=== PATIENT | female | born 1960 | race Caucasian/White ===

== ENCOUNTER 2016-11-24 14:21 | Outpatient (CLI) | payer OTHER | END 2016-11-24 14:22 | DX: E03.9 Hypothyroidism, unspecified (principal) ==

== ENCOUNTER 2016-12-26 08:00 | Outpatient (CLI) | payer OTHER | END 2016-12-26 23:59 | DX: E03.9 Hypothyroidism, unspecified (principal) ==

== ENCOUNTER 2017-04-22 07:49 | Outpatient (CLI) | payer OTHER | END 2017-04-22 07:50 | disposition home or self-care (01) | LOC: DI 07:49 | PROVIDERS: ATTEND Family Medicine | DX: R06.09 Other forms of dyspnea (principal); R06.2 Wheezing; E78.5 Hyperlipidemia, unspecified | CPT/HCPCS: 93306; 94060; 94729; J7613 ==

== ENCOUNTER 2017-04-22 07:51 | Outpatient (CLI) | payer OTHER ==
[2017-04-22] MEDS ORDERED: ALBUTEROL NEB 2.5 MG/3 ML INH ONE (09:16)
== END 2017-04-22 07:52 | disposition home or self-care (01) ==
LOC: RT 07:51
PROVIDERS: ATTEND Family Medicine
DX: R06.09 Other forms of dyspnea (principal); R06.2 Wheezing
CPT/HCPCS: 94060; 94729; J7613

== ENCOUNTER 2017-07-26 08:08 | Outpatient (CLI) | payer OTHER ==
[2017-07-26 13:02] LABS: BASOPHILS # (AUTO) 0.1 10^3/uL (0.0-0.1); BASOPHILS % (AUTO) 0.6 %; EOSINOPHILS # (AUTO) 0.2 10^3/uL (0.0-0.7); EOSINOPHILS % (AUTO) 2.4 %; LYMPHOCYTES # (AUTO) 2.5 10^3/uL (1.5-3.5); MEAN CORPUSCULAR HGB CONC 33.3 g/dL (32.0-36.0); MEAN CORPUSCULAR VOLUME 84.1 fL (81.0-99.0); MEAN PLATELET VOLUME 9.3 fL (7.9-10.8); MONOCYTES # (AUTO) 0.6 10^3/uL (0.0-1.0); MONOCYTES % (AUTO) 5.9 %; NEUTROPHILS # (AUTO) 6.4 10^3/uL (1.5-6.6); NEUTROPHILS % (AUTO) 65.1 %; RED BLOOD COUNT 4.63 10^6/uL (4.20-5.40); RED CELL DISTRIBUTION WIDTH 14.7 % (12.0-15.0); UNCORRECTED WHITE BLOOD COUNT 9.8 x10^3/uL; WHITE BLOOD COUNT 9.8 x10^3/uL (4.8-10.8)
[2017-07-26 13:20] LABS: ALBUMIN/GLOBULIN RATIO 1.1 (1.0-2.2); BILIRUBIN,TOTAL 0.5 mg/dL (0.2-1.0); BUN - BLOOD UREA NITROGEN 17 mg/dL (6-20); CALCIUM 9.2 mg/dL (8.5-10.3); CARBON DIOXIDE - CO2 29 mmol/L (21-32); CHLORIDE 98 mmol/L (101-111); CHOL/HDL RATIO 4.5 (<4.4); CHOLESTEROL 250 mg/dL; CREATININE 0.8 mg/dL (0.4-1.0); GFR - MDRD 73 (>89); GLUCOSE 95 mg/dL (70-100); HDL CHOLESTEROL 55 mg/dL; LDL/HDL RATIO 3.2 (<4.4); POTASSIUM 3.9 mmol/L (3.5-5.0); SODIUM 134 mmol/L (135-145); TOTAL PROTEIN 7.5 g/dL (6.7-8.2); TRIGLYCERIDES 103 mg/dL; VLDL CHOLESTEROL 21 mg/dL
== END 2017-07-26 08:09 | disposition home or self-care (01) ==
LOC: LAB.WCP 08:08
PROVIDERS: ATTEND Family Medicine
DX: I10 Essential (primary) hypertension (principal); E78.5 Hyperlipidemia, unspecified; E03.9 Hypothyroidism, unspecified
CPT/HCPCS: 36415; 80050; 80061

== ENCOUNTER 2017-09-19 09:27 | Outpatient (CLI) | payer OTHER | END 2017-09-19 09:28 | disposition critical access hospital (66) | LOC: EMS 09:27 | PROVIDERS: ATTEND Surgery | DX: M54.9 Dorsalgia, unspecified (principal); W19.XXXA Unspecified fall, initial encounter; Y93.89 Activity, other specified; Y92.69 Other specified industrial and construction area as the place of occurrence of the external cause | CPT/HCPCS: A0425; A0429 ==

== ENCOUNTER 2017-09-19 09:49 | Emergency (ER) | payer OTHER ==
[2017-09-19] MEDS ORDERED: LIDOCAINE PATCH 5% TOP STA (10:07)
[2017-09-19] MEDS ORDERED: KETOROLAC 60 MG/2 ML VIAL IM STA (10:07)
--- NOTE | 2017-09-19 10:25 | ED Physician Documentation ---
History of Present Illness - Stated complaint Stated Complaint: FALL - Chief complaint Chief Complaint: Back Pain - Additonal information Additional information: hx from pt 57 f fell out of chair onto her bottom pain to low back no head neck chest abd injury no numbness weakness or incont no blood thinners Review of Systems Cardiac: denies: Chest pain / pressure Respiratory: denies: Dyspnea GI: denies: Abdominal Pain : denies: Incontinent, Now EGA Musculoskeletal: reports: Back pain Neurologic: denies: Focal weakness, Numbness Endocrine: denies: Easy bruising / bleeding PD PAST MEDICAL HISTORY - Present Medications Home Medications: Ambulatory Orders Medication Instructions Recorded Confirmed Esomeprazole Magnesium [Nexium] 40 mg PO BID 11/05/14 11/06/14 Fluoxetine HCl [Prozac] 40 mg PO BID 11/05/14 11/06/14 Furosemide 20 mg PO DAILY 11/05/14 11/06/14 Ibuprofen 800 mg PO TID 11/05/14 11/06/14 Isosorbide Dinitrate [Isochron] 60 mg PO DAILY 11/05/14 11/06/14 Levothyroxine [Synthroid] 25 mcg PO QDAC 11/05/14 11/06/14 Losartan [Cozaar] 25 mg PO ONCE 11/05/14 11/06/14 Propranolol [Inderal] 20 mg PO TID 11/05/14 11/06/14 Cyclobenzaprine [Flexeril] 10 mg PO TID PRN #20 tablet 09/19/17 Ibuprofen [Motrin] 400 mg PO Q6H PRN #30 tablet 09/19/17 Lidocaine Patch 5% [Lidoderm Patch] 1 each TOP DAILY PRN #10 patch 09/19/17 - Allergies Allergies/Adverse Reactions: Allergies Allergy/AdvReac Type Severity Reaction Status Date / Time erythromycin base Allergy Hives Verified 11/05/14 13:16 PD ED PE NORMAL - Vitals Vital signs reviewed: Yes - General General: Alert and oriented X 3 - HEENT HEENT: Atraumatic, PERRL - Neck Neck: Supple, no meningeal sign - Cardiac Cardiac: RRR - Respiratory Respiratory: No respiratory distress, Clear bilaterally - Abdomen Abdomen: Soft, Non tender - Back Back: Other (TTP acros posteior pelvis and low L spine - no bruising or step off , hip able to range s pain) - Derm Derm: Normal color - Extremities Extremities: No deformity, Normal ROM s pain - Neuro Neuro: No motor deficit, No sensory deficit, Other (hip flex knee ext foot dorsi plantar great toe 5/5, no clonus, neg SLR, denies saddle anesthesia) Results - Vitals Vitals: Vital Signs - 24 hr 09/19/17 09/19/17 09/19/17 09:53 11:16 12:42 Temperature 35.9 C L 36.5 C 36.5 C Heart Rate 59 L 67 62 Respiratory 22 18 18 Rate Blood Pressure 137/72 H 119/69 121/57 L O2 Saturation 100 96 94 Oxygen O2 Source Room air - Rads (name of study) pelvis and L spine Radiology: See rad report (no acute fx) Departure - Departure Disposition: ED Transfer to [facility] Clinical Impression: Back injury Qualifiers: Encounter type: initial encounter Qualified Code(s): S39.92XA - Unspecified injury of lower back, initial encounter Condition: Good Instructions: ED Low Back Pain Injury Prescriptions: Cyclobenzaprine [Flexeril] 10 mg PO TID PRN #20 tablet PRN Reason: Spasms Ibuprofen [Motrin] 400 mg PO Q6H PRN #30 tablet PRN Reason: Pain Lidocaine Patch 5% [Lidoderm Patch] 1 each TOP DAILY PRN #10 patch PRN Reason: Pain Comments: The xrays are fine - no fractures just some degenerative changes Recommend lidocaine patches, a muscle relaxant and motrin. Ice and or heat as needed Follow up with your PMD Return if worse Forms: Activity restrictions
--- NOTE | 2017-09-19 12:24 | XRAY Preliminary Report ---
Exam: XR PELVIS 1 VIEW IMPRESSION: No acute plain radiographic abnormality in the pelvis. [facility] SITE ID: [id number]
--- NOTE | 2017-09-19 12:27 | XRAY Report ---
EXAM: PELVIS RADIOGRAPHY EXAM DATE: 09/19/2017 12:05 PM. CLINICAL HISTORY: Fall low back and posterior pelvis pain. COMPARISON: None available. TECHNIQUE: 1 view. FINDINGS: Bones: Normal. No fracture or bone lesion. Joints: Normal joint alignment. Mild sclerosis along the lower aspect of the left sacroiliac joint. T here is facet hypertrophy in the lower lumbar spine. Soft Tissues: There are what appear to be hernia mesh repair markers. No soft tissue swelling. IMPRESSION: No acute plain radiographic abnormality in the pelvis. [facility] Referring Provider Line: [phone] SITE ID: [id number]
--- NOTE | 2017-09-19 12:27 | XRAY Preliminary Report ---
Exam: XR LUMBAR SPINE 2 VIEW IMPRESSION: 1. No acute plain radiographic abnormality in the lumbar spine. 2. Grade 2 anterolisthesis of L5 on S1. 3. Multilevel degenerative spondylosis. [facility] SITE ID: [id number]
--- NOTE | 2017-09-19 12:29 | XRAY Report ---
EXAM: LUMBOSACRAL SPINE RADIOGRAPHY EXAM DATE: 09/19/2017 12:05 PM. CLINICAL HISTORY: Fall low back and posterior pelvis pain. COMPARISONS: None available. TECHNIQUE: 2 views. FINDINGS: Alignment: There is approximately 1.7 cm anterolisthesis of L5 on S1. Bones: Five [id number] lumbar vertebral bodies are present. No fractures or bone lesions. Disks: There is at least mild intervertebral disk space narrowing at L1-L2, L3-L4, L4-L5, and L5-S1. Facets: There is facet hypertrophy at L4-L5 and L5-S1. Sacroiliac Joints: Mild asymmetric sclerosis of the lower margin of the left sacroiliac joint. Soft Tissues: Normal. The visualized bowel gas pattern is normal. IMPRESSION: 1. No acute plain radiographic abnormality in the lumbar spine. 2. Grade 2 anterolisthesis of L5 on S1. 3. Multilevel degenerative spondylosis. [facility] Referring Provider Line: [phone] SITE ID: [id number]
[2017-09-19 13:07] VITALS: BP 116/58
== END 2017-09-19 13:19 | disposition home or self-care (01) ==
LOC: EDUNIT# → ED 09:49
DX: S39.92XA Unspecified injury of lower back, initial encounter (principal); W07.XXXA Fall from chair, initial encounter
CPT/HCPCS: 1040M; 72100; 72170; 96372; 99283; 99284; A9270

== ENCOUNTER 2017-11-23 20:17 | Outpatient (CLI) | payer OTHER ==
[2017-11-23 12:30] LABS: BASOPHILS # (AUTO) 0.1 10^3/uL (0.0-0.1); BASOPHILS % (AUTO) 0.7 %; EOSINOPHILS # (AUTO) 0.3 10^3/uL (0.0-0.7); EOSINOPHILS % (AUTO) 2.9 %; HGB - HEMOGLOBIN 13.5 g/dL (12.0-16.0); LYMPHOCYTES # (AUTO) 2.3 10^3/uL (1.5-3.5); LYMPHOCYTES % (AUTO) 20.9 %; MEAN CORPUSCULAR HGB CONC 33.1 g/dL (32.0-36.0); MEAN CORPUSCULAR VOLUME 84.6 fL (81.0-99.0); MEAN PLATELET VOLUME 9.8 fL (7.9-10.8); MONOCYTES # (AUTO) 0.5 10^3/uL (0.0-1.0); MONOCYTES % (AUTO) 4.9 %; NEUTROPHILS # (AUTO) 7.8 10^3/uL (1.5-6.6); NEUTROPHILS % (AUTO) 70.6 %; PLT - PLATELET COUNT 261 10^3/uL (130-450); RED BLOOD COUNT 4.81 10^6/uL (4.20-5.40); RED CELL DISTRIBUTION WIDTH 14.9 % (12.0-15.0)
[2017-11-23 14:03] LABS: THYROID STIMULATING HORMONE 5.78 uIU/mL (0.34-5.60)
[2017-11-23 14:05] LABS: FREE T4 (FREE THYROXINE) 0.99 ng/dL (0.58-1.64)
[2017-11-23 14:11] LABS: ALBUMIN/GLOBULIN RATIO 1.1 (1.0-2.2); ALKALINE PHOSPHATASE 117 IU/L (42-121); ALT ALANINE AMINOTRANSFERASE 30 IU/L (10-60); AST ASPARTATE AMINOTRANSFERASE 25 IU/L (10-42); BILIRUBIN,TOTAL 0.8 mg/dL (0.2-1.0); BUN - BLOOD UREA NITROGEN 15 mg/dL (6-20); CARBON DIOXIDE - CO2 26 mmol/L (21-32); CHLORIDE 98 mmol/L (101-111); CHOL/HDL RATIO 3.9 (<4.4); CHOLESTEROL 210 mg/dL; CREATININE 0.7 mg/dL (0.4-1.0); GFR - MDRD 86 (>89); GLUCOSE 107 mg/dL (70-100); HDL CHOLESTEROL 54 mg/dL; LDL CHOLESTEROL,CALCULATED 129 mg/dL; LDL/HDL RATIO 2.4 (<4.4); SODIUM 135 mmol/L (135-145); TOTAL PROTEIN 7.8 g/dL (6.7-8.2); VLDL CHOLESTEROL 27 mg/dL
== END 2017-11-23 20:18 | disposition home or self-care (01) ==
LOC: LAB.WCP 20:17
PROVIDERS: ATTEND Family Medicine
DX: I10 Essential (primary) hypertension (principal); E78.5 Hyperlipidemia, unspecified; E03.9 Hypothyroidism, unspecified
CPT/HCPCS: 36415; 80053; 80061; 83721; 84439; 84443; 84481; 85025

== ENCOUNTER 2017-12-27 08:00 | Outpatient (CLI) | payer OTHER ==
[2017-12-27 19:24] LABS: THYROID STIMULATING HORMONE 0.29 uIU/mL (0.34-5.60)
[2017-12-27 19:25] LABS: FREE T4 (FREE THYROXINE) 1.29 ng/dL (0.58-1.64)
== END 2017-12-27 08:01 | disposition home or self-care (01) ==
LOC: LAB.WCP 08:00
PROVIDERS: ATTEND Family Medicine
DX: E03.9 Hypothyroidism, unspecified (principal)
CPT/HCPCS: 36415; 84439; 84443; 84481

== ENCOUNTER 2018-03-27 14:47 | Outpatient (CLI) | payer OTHER ==
[2018-03-27 19:24] LABS: THYROID STIMULATING HORMONE 0.25 uIU/mL (0.34-5.60)
[2018-03-27 19:26] LABS: FREE T4 (FREE THYROXINE) 1.14 ng/dL (0.58-1.64)
== END 2018-03-27 14:48 | disposition home or self-care (01) ==
LOC: LAB.WCP 14:47
PROVIDERS: ATTEND Family Medicine
DX: E03.9 Hypothyroidism, unspecified (principal)
CPT/HCPCS: 36415; 84439; 84443; 84481

== ENCOUNTER 2018-05-08 14:50 | Outpatient (CLI) | payer OTHER ==
[2018-05-08 19:36] LABS: THYROID STIMULATING HORMONE 2.11 uIU/mL (0.34-5.60)
[2018-05-08 19:38] LABS: FREE T4 (FREE THYROXINE) 1.12 ng/dL (0.58-1.64)
== END 2018-05-08 14:51 | disposition home or self-care (01) ==
LOC: LAB.WCP 14:50
PROVIDERS: ATTEND Family Medicine
DX: E03.9 Hypothyroidism, unspecified (principal)
CPT/HCPCS: 36415; 84439; 84443; 84481

== ENCOUNTER 2018-10-16 10:06 | Outpatient (CLI) | payer OTHER ==
[2018-10-16] MEDS ORDERED: BARIUM SULFATE 148 GM POWDER PO ONE (12:21)
--- NOTE | 2018-10-16 19:13 | XRAY Report ---
Reason: DYSPHAGIA Procedure Date: 10/16/2018 Accession Number: [id number] / [id number] Procedure: FL - Modified Barium Swallow W/SP CPT Code: FULL RESULT: EXAM: Modified Barium Swallow W/SP DATE: 10/16/2018 11:55 AM CLINICAL HISTORY: DYSPHAGIA TECHNIQUE: Routine COMPARISON: 12/03/2014 esophagram FINDINGS: The patient is given a variety of thin and thick liquids and solids to swallow by mouth. The swallowing mechanism proceeds normally. There is no evidence of aspiration, cricopharyngeus dysfunction, nasopharyngeal reflux, or other abnormality. Incidental note is made of degenerative change in the cervical spine. IMPRESSION: No significant abnormality modified barium swallow with speech pathology. See formal speech pathology report for detailed information.
== END 2018-10-16 10:07 | disposition home or self-care (01) ==
LOC: DI 10:06
PROVIDERS: ATTEND Family Medicine
DX: R13.10 Dysphagia, unspecified (principal)
CPT/HCPCS: 74230

== ENCOUNTER 2018-11-06 10:41 | Outpatient (CLI) | payer OTHER | END 2018-11-06 10:42 | disposition home or self-care (01) | LOC: SC 10:41 | PROVIDERS: ATTEND Internal Medicine Pulmonary Disease | DX: G47.33 Obstructive sleep apnea (adult) (pediatric) (principal); E66.01 Morbid (severe) obesity due to excess calories; Z68.42 Body mass index [BMI] 45.0-49.9, adult | CPT/HCPCS: 99203; 99212 ==

== ENCOUNTER 2018-12-07 20:55 | Outpatient (CLI) | payer OTHER | END 2018-12-07 20:56 | disposition home or self-care (01) | LOC: SC 20:55 | PROVIDERS: ATTEND Internal Medicine Pulmonary Disease | DX: G47.33 Obstructive sleep apnea (adult) (pediatric) (principal); G47.61 Periodic limb movement disorder | CPT/HCPCS: 95810 ==

== ENCOUNTER 2018-12-19 10:12 | Outpatient (CLI) | payer OTHER | END 2018-12-19 10:13 | disposition home or self-care (01) | LOC: SC 10:12 | PROVIDERS: ATTEND Nurse Practitioner Family | DX: G47.33 Obstructive sleep apnea (adult) (pediatric) (principal); G47.61 Periodic limb movement disorder | CPT/HCPCS: 99212; 99214 ==

== ENCOUNTER 2019-03-12 08:04 | Outpatient (CLI) | payer OTHER ==
[2019-03-12 14:41] LABS: BASOPHILS % (AUTO) 0.4 %; EOSINOPHILS # (AUTO) 0.3 10^3/uL (0.0-0.7); EOSINOPHILS % (AUTO) 3.5 %; HGB - HEMOGLOBIN 12.8 g/dL (12.0-16.0); LYMPHOCYTES # (AUTO) 1.8 10^3/uL (1.5-3.5); MEAN CORPUSCULAR HEMOGLOBIN 27.8 pg (27.0-31.0); MEAN CORPUSCULAR HGB CONC 32.9 g/dL (32.0-36.0); MEAN CORPUSCULAR VOLUME 84.5 fL (81.0-99.0); MEAN PLATELET VOLUME 8.9 fL (7.9-10.8); MONOCYTES # (AUTO) 0.5 10^3/uL (0.0-1.0); MONOCYTES % (AUTO) 6.2 %; NEUTROPHILS % (AUTO) 65.9 %; PLT - PLATELET COUNT 264 10^3/uL (130-450); RED BLOOD COUNT 4.62 10^6/uL (4.20-5.40); RED CELL DISTRIBUTION WIDTH 15.3 % (12.0-15.0); WHITE BLOOD COUNT 7.6 x10^3/uL (4.8-10.8)
[2019-03-12 14:50] LABS: ALBUMIN 3.7 g/dL (3.2-5.5); ALBUMIN/GLOBULIN RATIO 0.9 (1.0-2.2); ALKALINE PHOSPHATASE 113 IU/L (42-121); ALT ALANINE AMINOTRANSFERASE 20 IU/L (10-60); AST ASPARTATE AMINOTRANSFERASE 25 IU/L (10-42); BILIRUBIN,TOTAL 0.3 mg/dL (0.2-1.0); BUN - BLOOD UREA NITROGEN 11 mg/dL (6-20); CALCIUM 9.4 mg/dL (8.5-10.3); CARBON DIOXIDE - CO2 26 mmol/L (21-32); CHLORIDE 102 mmol/L (101-111); CHOL/HDL RATIO 3.7 (<4.4); CHOLESTEROL 222 mg/dL; CREATININE 0.7 mg/dL (0.4-1.0); GFR - MDRD 85 (>89); GLUCOSE 105 mg/dL (70-100); HDL CHOLESTEROL 60 mg/dL; LDL CHOLESTEROL,CALCULATED 140 mg/dL; LDL/HDL RATIO 2.3 (<4.4); SODIUM 139 mmol/L (135-145); TOTAL PROTEIN 7.6 g/dL (6.7-8.2); VLDL CHOLESTEROL 22 mg/dL
[2019-03-12 15:00] LABS: HB2 TOTAL 13.8 g/dL; HEMOGLOBIN A1C 0.49 g/dL; HEMOGLOBIN A1C % 5.4 % (4.6-6.2)
== END 2019-03-12 08:05 | disposition home or self-care (01) ==
LOC: LAB.WCP 08:04
PROVIDERS: ATTEND Family Medicine
DX: I10 Essential (primary) hypertension (principal); E03.9 Hypothyroidism, unspecified
CPT/HCPCS: 36415; 80053; 80061; 83036; 83721; 84443; 85025

== ENCOUNTER 2019-12-05 14:49 | Outpatient (CLI) | payer OTHER | END 2019-12-05 14:50 | disposition home or self-care (01) | LOC: DI.N 14:49 | DX: Z53.9 Procedure and treatment not carried out, unspecified reason (principal) ==

== ENCOUNTER 2020-01-23 08:00 | Outpatient (CLI) | payer OTHER | END 2020-01-23 23:59 | disposition home or self-care (01) | LOC: LAB.R 08:00 | PROVIDERS: ATTEND Physician Assistant Medical | DX: R10.32 Left lower quadrant pain (principal) | CPT/HCPCS: 87086 ==

== ENCOUNTER 2020-02-06 08:00 | Outpatient (CLI) | payer OTHER ==
[2020-02-06 13:25] LABS: BASOPHILS # (AUTO) 0.1 10^3/uL (0.0-0.1); BASOPHILS % (AUTO) 0.5 %; EOSINOPHILS # (AUTO) 0.3 10^3/uL (0.0-0.7); EOSINOPHILS % (AUTO) 3.1 %; HGB - HEMOGLOBIN 13.3 g/dL (12.0-16.0); LYMPHOCYTES # (AUTO) 2.8 10^3/uL (1.5-3.5); LYMPHOCYTES % (AUTO) 28.5 %; MEAN CORPUSCULAR HEMOGLOBIN 28.8 pg (27.0-31.0); MEAN CORPUSCULAR HGB CONC 31.7 g/dL (32.0-36.0); MEAN CORPUSCULAR VOLUME 90.9 fL (81.0-99.0); MEAN PLATELET VOLUME 11.2 fL (7.9-10.8); MONOCYTES # (AUTO) 0.5 10^3/uL (0.0-1.0); MONOCYTES % (AUTO) 5.1 %; NEUTROPHILS % (AUTO) 62.4 %; PLT - PLATELET COUNT 288 10^3/uL (130-450); RED BLOOD COUNT 4.62 10^6/uL (4.20-5.40); RED CELL DISTRIBUTION WIDTH 13.8 % (12.0-15.0); WHITE BLOOD COUNT 9.7 x10^3/uL (4.8-10.8)
[2020-02-06 14:19] LABS: ALBUMIN 4.1 g/dL (3.2-5.5); ALBUMIN/GLOBULIN RATIO 1.1 (1.0-2.2); ALKALINE PHOSPHATASE 108 IU/L (42-121); ALT ALANINE AMINOTRANSFERASE 24 IU/L (10-60); AST ASPARTATE AMINOTRANSFERASE 33 IU/L (10-42); BILIRUBIN,TOTAL 0.5 mg/dL (0.2-1.0); BUN - BLOOD UREA NITROGEN 17 mg/dL (6-20); CALCIUM 8.9 mg/dL (8.5-10.3); CARBON DIOXIDE - CO2 26 mmol/L (21-32); CHLORIDE 97 mmol/L (101-111); CHOL/HDL RATIO 4.5 (<4.4); CHOLESTEROL 245 mg/dL; CREATININE 0.8 mg/dL (0.4-1.0); GLUCOSE 89 mg/dL (70-100); HDL CHOLESTEROL 54 mg/dL; LDL CHOLESTEROL,CALCULATED 160 mg/dL; SODIUM 134 mmol/L (135-145); TOTAL PROTEIN 7.7 g/dL (6.7-8.2); VLDL CHOLESTEROL 31 mg/dL
[2020-02-06 14:22] LABS: T4 (THYROXINE) 8.73 ug/dL (6.09-12.23)
[2020-02-06 14:29] LABS: FREE T4 (FREE THYROXINE) 0.89 ng/dL (0.58-1.64)
== END 2020-02-06 23:59 | disposition home or self-care (01) ==
LOC: LAB.WCP 08:00
PROVIDERS: ATTEND Physician Assistant Medical
DX: E78.5 Hyperlipidemia, unspecified (principal); E03.9 Hypothyroidism, unspecified; R10.32 Left lower quadrant pain; K21.9 Gastro-esophageal reflux disease without esophagitis
CPT/HCPCS: 36415; 80053; 80061; 83721; 84436; 84439; 84443; 85025; 87086

== ENCOUNTER 2020-11-09 15:28 | Outpatient (CLI) | payer OTHER ==
--- NOTE | 2020-11-09 16:37 | DEXA Report ---
PROCEDURE: Dexa Spine and/or Hip INDICATIONS: POST MENOPAUSAL TECHNIQUE: Dual energy x-ray absorptiometry (DXA) was performed on a [employer] System. Regions measur ed are the AP Spine, femoral neck, and if needed forearm. COMPARISON: None. FINDINGS: Left Hip: Bone Mineral Density 0.855 g/cm/cm,T score -1.2, minimal osteopenia Left Femoral Neck: Bone Mineral Density 0.719 g/cm/cm, T score -2.3, severe osteopenia Left forearm: Bone Mineral Density 0.510 g/cm/cm, T score -2.7, mild osteoporosis (T score greater or equal to -1.0: NORMAL) (T score from -1.1 to -2.4: OSTEOPENIA) (T score less than or equal to -2.5 to: OSTEOPOROSIS) Impression: Osteoporosis within the left forearm as above. Patients with diagnosis of osteoporosis or osteopenia should have regular bone mineral density assess ment. For those eligible for Medicare, routine testing is allowed once every 2 years. Testing frequ ency can be increased for patients who have rapidly progressing disease or for those who are receivin g medical therapy to restore bone mass. Reviewed by: Ksenia Guerin MD on 11/09/2020 4:36 PM PST Approved by: Ksenia Guerin MD on 11/09/2020 4:36 PM PST Station ID: [id number]
== END 2020-11-09 15:29 | disposition home or self-care (01) ==
LOC: DI 15:28
PROVIDERS: ATTEND Physician Assistant Medical
DX: M81.0 Age-related osteoporosis without current pathological fracture (principal); Z78.0 Asymptomatic menopausal state

== ENCOUNTER 2021-01-30 09:32 | Outpatient (CLI) | payer OTHER ==
[2021-01-30 13:37] LABS: BASOPHILS # (AUTO) 0.1 10^3/uL (0.0-0.1); BASOPHILS % (AUTO) 0.7 %; EOSINOPHILS # (AUTO) 0.4 10^3/uL (0.0-0.7); HCT - HEMATOCRIT 42.8 % (37.0-47.0); HGB - HEMOGLOBIN 13.3 g/dL (12.0-16.0); LYMPHOCYTES # (AUTO) 2.6 10^3/uL (1.5-3.5); MEAN CORPUSCULAR HEMOGLOBIN 28.4 pg (27.0-31.0); MEAN CORPUSCULAR HGB CONC 31.1 g/dL (32.0-36.0); MEAN CORPUSCULAR VOLUME 91.5 fL (81.0-99.0); MEAN PLATELET VOLUME 10.5 fL (7.9-10.8); MONOCYTES # (AUTO) 0.5 10^3/uL (0.0-1.0); MONOCYTES % (AUTO) 5.3 %; NEUTROPHILS # (AUTO) 6.7 10^3/uL (1.5-6.6); NEUTROPHILS % (AUTO) 64.7 %; PLT - PLATELET COUNT 326 10^3/uL (130-450); RED BLOOD COUNT 4.68 10^6/uL (4.20-5.40); RED CELL DISTRIBUTION WIDTH 15.1 % (12.0-15.0); WHITE BLOOD COUNT 10.3 x10^3/uL (4.8-10.8)
[2021-01-30 13:56] LABS: ALBUMIN/GLOBULIN RATIO 1.1 (1.0-2.2); ALKALINE PHOSPHATASE 116 IU/L (42-121); ALT ALANINE AMINOTRANSFERASE 25 IU/L (10-60); AST ASPARTATE AMINOTRANSFERASE 26 IU/L (10-42); BILIRUBIN,TOTAL 0.6 mg/dL (0.2-1.0); BUN - BLOOD UREA NITROGEN 19 mg/dL (6-20); CALCIUM 9.2 mg/dL (8.5-10.3); CARBON DIOXIDE - CO2 29 mmol/L (21-32); CHLORIDE 99 mmol/L (101-111); CHOL/HDL RATIO 3.9 (<4.4); CHOLESTEROL 237 mg/dL; CREATININE 0.8 mg/dL (0.4-1.0); GFR - MDRD 73 (>89); GLUCOSE 100 mg/dL (70-100); HDL CHOLESTEROL 61 mg/dL; LDL CHOLESTEROL,CALCULATED 154 mg/dL; LDL/HDL RATIO 2.5 (<4.4); POTASSIUM 3.9 mmol/L (3.5-5.0); SODIUM 136 mmol/L (135-145); TOTAL PROTEIN 7.5 g/dL (6.7-8.2); TRIGLYCERIDES 110 mg/dL; VLDL CHOLESTEROL 22 mg/dL
[2021-01-30 14:07] LABS: THYROID STIMULATING HORMONE 6.63 uIU/mL (0.34-5.60)
[2021-01-30 14:43] LABS: FREE T4 (FREE THYROXINE) 0.71 ng/dL (0.58-1.64)
== END 2021-01-30 09:33 | disposition home or self-care (01) ==
LOC: LAB.N 09:32
PROVIDERS: ATTEND Physician Assistant Medical
DX: E78.5 Hyperlipidemia, unspecified (principal); E03.9 Hypothyroidism, unspecified; N39.41 Urge incontinence
CPT/HCPCS: 36415; 80053; 80061; 83721; 84439; 84443; 85025

== ENCOUNTER 2021-03-24 09:16 | Outpatient (CLI) | payer OTHER ==
--- NOTE | 2021-03-26 11:14 | Mammography Report ---
BILATERAL DIGITAL DIAGNOSTIC MAMMOGRAM 3D/2D: 03/24/2021 CLINICAL: Palpable Left breast lump. Comparison is made to exams dated: 07/27/2016 mammogram - [facility], 07/31/2013 ammogram, and 06/02/2011 mammogram - [facility] [[email or web address] There are scattered fibroglandular elements in both breasts. No significant masses, calcifications, or other findings are seen in either breast. IMPRESSION: INCOMPLETE: NEEDS ADDITIONAL IMAGING EVALUATION There is no abnormality seen in the left breast to correspond with the area of clinical concern and p alpable abnormality indicated by triangular marker at 11 o'clock in the middle depth. An ultrasound is recommended for further evaluation and is scheduled to immediately follow this exami nation. This exam was interpreted at Station ID: [id number]. NOTE: For mammograms, a report in lay terms will be sent to the patient. Approximately 15% of breast malignancies will not be visualized mammographically. In the management of a palpable breast mass, a negative mammogram must not discourage biopsy of a clinically suspicious lesion. Electronically Signed By: Obey Wilson M.D. aty/:03/25/2021 18:58:56 ACR BI-RADS Category 0: Incomplete 3340F PARENCHYMAL PATTERN: (A) - The breast(s) demonstrate(s) scattered fibroglandular densities. BI-RADS CATEGORY: (0) - 0 Ultrasound [id number] Immediate follow-up LATERALITY: (L)
--- NOTE | 2021-03-26 11:14 | Ultrasound Report ---
LIMITED ULTRASOUND OF LEFT BREAST: 03/24/2021 CLINICAL: Palpable left breast lump. Comparison is made to exams dated: 03/24/2021 mammogram, 07/27/2016 mammogram - [facility], 07/31/2013 mammogram, and 06/02/2011 mammogram - [facility]. Real-time ultrasound of the left breast upper inner quadrant was performed. Parsons scale images of th e real-time examination were reviewed. No significant abnormalities were seen sonographically in the left breast. IMPRESSION: NEGATIVE There is no sonographic evidence of malignancy. There is no abnormality seen in the left breast to correspond with the area of clinical concern and p alpable abnormality indicated by triangular marker in the upper inner quadrant, however, recommend cl inical follow up for persistent or worsening symptoms, or development of any clinically suspicious fi ndings. A 1 year screening mammogram is recommended. Findings and recommendations were conveyed to the patient during today's evaluation. This exam was interpreted at Station ID: [id number]. Electronically Signed By: Obey Wilson M.D. aty/:03/25/2021 19:00:21 Ultrasound BI-RADS: 1 Negative BI-RADS CATEGORY: (1) - 1 RECOMMENDATION: (ANNUAL) - Recommend routine annual screening mammography. [id number] 1 year screening LATERALITY: (B)
== END 2021-03-24 09:17 | disposition home or self-care (01) ==
LOC: DI 09:16
PROVIDERS: ATTEND Physician Assistant Medical
DX: R92.8 Other abnormal and inconclusive findings on diagnostic imaging of breast (principal)

== ENCOUNTER 2021-04-02 16:02 | Outpatient (CLI) | payer OTHER ==
[2021-04-02 18:18] LABS: THYROID STIMULATING HORMONE 2.43 uIU/mL (0.34-5.60)
== END 2021-04-02 16:03 | disposition home or self-care (01) ==
LOC: LAB.N 16:02
PROVIDERS: ATTEND Physician Assistant Medical
DX: E03.9 Hypothyroidism, unspecified (principal)
CPT/HCPCS: 36415; 84443

== ENCOUNTER 2021-07-08 15:37 | Outpatient (CLI) | payer OTHER ==
[2021-07-08 18:24] LABS: THYROID STIMULATING HORMONE 2.51 uIU/mL (0.34-5.60)
== END 2021-07-08 15:38 | disposition home or self-care (01) ==
LOC: LAB.N 15:37
PROVIDERS: ATTEND Physician Assistant Medical
DX: E03.9 Hypothyroidism, unspecified (principal)
CPT/HCPCS: 36415; 84443

== ENCOUNTER 2021-07-27 09:40 | Day surgery (SDC) | payer OTHER ==
[2021-07-27] MEDS ORDERED: LACTATED RINGERS 1,000 ML IV ONE (10:19)
--- NOTE | 2021-07-27 10:24 | ANESTHESIA ---
Pre-Anesthesia VS, & Labs - Diagnosis screening exam - Procedure colonoscopy Vital Signs: Temp Pulse Resp BP Pulse Ox 36.2 C L 88 18 163/93 H 98 07/27/21 09:45 07/27/21 09:45 07/27/21 09:45 07/27/21 09:45 07/27/21 09:45 Height: 5 ft 1 in Weight (kg): 115.9 kg Body Mass Index: 48.2 BMI Classification: Morbidly Obese - NPO >8 hours - Is Patient ?: No Home Medications and Allergies Home Medications: Ambulatory Orders Albuterol Sulfate [Proair Hfa Inhaler] 1 - 2 puffs INH Q4H PRN 07/23/21 Fluticasone Propionate 1 spray NS BID 07/23/21 Fluticasone/Salmeterol [Advair 250-50 Diskus] 1 each IH BID 07/23/21 Gabapentin [Neurontin] 600 mg PO BID 07/23/21 Krill/Om-3/Dha/Epa/Phospho/Ast [[place]-3 Krill Oil 300 mg Sfgl] 1 each PO DAILY 07/23/21 Omeprazole 40 mg PO DAILY 07/23/21 Oxybutynin Chloride [Ditropan Xl] 5 mg PO QPM 07/23/21 Coffee/Theanine/Superoxide Dis [Neuriva De-Stress Capsule] 1 each PO 07/27/21 Phentermine HCl 30 mg PO 07/27/21 Fluoxetine HCl [Prozac] 80 mg PO DAILY 11/05/14 Ibuprofen 800 mg PO Q8HR PRN 11/05/14 Isosorbide Dinitrate [Isochron] 60 mg PO DAILY 11/05/14 Levothyroxine [Synthroid] 175 mcg PO QDAC 11/05/14 Albuterol Sulfate [Proair Hfa Inhaler] 1 - 2 puffs INH Q4H PRN 07/23/21 Fluticasone Propionate 1 spray NS BID 07/23/21 Fluticasone/Salmeterol [Advair 250-50 Diskus] 1 each IH BID 07/23/21 Gabapentin [Neurontin] 600 mg PO BID 07/23/21 Krill/Om-3/Dha/Epa/Phospho/Ast [[place]-3 Krill Oil 300 mg Sfgl] 1 each PO DAILY 07/23/21 Omeprazole 40 mg PO DAILY 07/23/21 Oxybutynin Chloride [Ditropan Xl] 5 mg PO QPM 07/23/21 Coffee/Theanine/Superoxide Dis [Neuriva De-Stress Capsule] 1 each PO 07/27/21 Phentermine HCl 30 mg PO 07/27/21 Allergies/Adverse Reactions: Allergies Allergy/AdvReac Type Severity Reaction Status Date / Time erythromycin base Allergy Hives Verified 11/05/14 13:16 Anes History & Medical History - Anesthetic History Anesthesia Complications: reports: No previous complications - Medical History Cardiovascular: reports: Hypertension, High cholesterol Pulmonary: reports: Asthma, Shortness of breath, Sleep apnea, CPAP use Gastrointestinal: reports: GERD Urinary: reports: Incontinence Neuro: reports: None Musculoskeletal: reports: Osteoarthritis, Chronic back pain Endocrine/Autoimmune: reports: HyPOthyroidism Blood Disorders: reports: None Skin: reports: None Smoking Status: Never smoker Psychosocial: reports: Depression, Anxiety History of Cancer?: No - Surgical History General: reports: Cholecystectomy, Bowel surgery, Colonoscopy Gynecologic: reports: Hysterectomy Orthopedic: reports: Knee replacement, Other Exam General: Alert, Oriented x3, Cooperative, No acute distress Dental: WNL Mouth Openin Fingerbreadth Neck Mobility: Normal Mallampati classification: III Thyromental Distance: less than 4 cm Mental/Cognitive Status: Alert/Oriented X3, Normal for patient Plan Anesthesia Type: Total IV Consent for Procedure(s) Verified and Reviewed: Yes Code Status: Attempt Resuscitation ASA classification: 3-Severe systemic disease Is this case an emergency?: No
[2021-07-27] MEDS ORDERED: PROPOFOL 500 MG/50 ML 500 MG/50 ML VIAL ONE (10:46)
[2021-07-27] MEDS ORDERED: VASOPRESSIN 20 UNIT/ML VIAL ONE (10:47)
[2021-07-27] MEDS ORDERED: LACTATED RINGERS 700 ML IV ONE (11:04)
[2021-07-27] MEDS ORDERED: LIDOCAINE-MPF 2% 5 ML VIAL ONE (11:09)
[2021-07-27 11:25] VITALS: BP 112/66
--- NOTE | 2021-07-27 14:22 | ANESTHESIA POST OP EVALUATION ---
Anesthesia Post Eval - Post Anesthesia Eval Vitals: Last Vital Signs Temp 36.3 C L 07/27/21 11:23 Pulse 66 07/27/21 11:23 Resp 16 07/27/21 11:23 BP 112/66 07/27/21 11:23 Pulse Ox 98 07/27/21 11:23 CV Function Including HR & BP: Stable Pain Control: Satisfactory Nausea & Vomiting: Negative Mental Status: Baseline Respiratory Status: Airway Patent Hydration Status: Satisfactory Anesthesia Complications: None
== END 2021-07-27 09:41 | disposition home or self-care (01) ==
LOC: SDS 09:40
PROVIDERS: ATTEND Surgery
PROC: 0DBK8ZZ Excision of Ascending Colon, Via Natural or Artificial Opening Endoscopic (ICD-10-PCS; principal; 2021-07-27 10:45)
DX: Z12.11 Encounter for screening for malignant neoplasm of colon (principal); K63.5 Polyp of colon; K64.8 Other hemorrhoids; K57.30 Diverticulosis of large intestine without perforation or abscess without bleeding; G47.33 Obstructive sleep apnea (adult) (pediatric); J45.998 Other asthma; Z99.89 Dependence on other enabling machines and devices; E66.01 Morbid (severe) obesity due to excess calories; Z68.42 Body mass index [BMI] 45.0-49.9, adult
CPT/HCPCS: 45380; J7120

== ENCOUNTER 2021-10-22 16:35 | Outpatient (CLI) | payer OTHER ==
[2021-10-22 21:57] LABS: THYROID STIMULATING HORMONE 0.4 uIU/mL (0.34-5.60)
== END 2021-10-22 16:36 | disposition home or self-care (01) ==
LOC: LAB.N 16:35
PROVIDERS: ATTEND Physician Assistant Medical
DX: E03.9 Hypothyroidism, unspecified (principal)
CPT/HCPCS: 36415; 84443

== ENCOUNTER 2021-10-22 16:39 | Outpatient (CLI) | payer OTHER ==
--- NOTE | 2021-10-22 20:17 | XRAY Report ---
PROCEDURE: Hand 3 View BILAT INDICATIONS: ARTHRITIS, BILATEAL HAND PAIN TECHNIQUE: 6 views of the hand(s) acquired. COMPARISON: None FINDINGS: Bones: No fractures or dislocations. No suspicious bony lesions. Moderate to severe osteoarthritic changes involving bilateral wrist joints are seen more prominent involving bilateral first CMC joint slightly worse on the right side. Right worse than left bilateral interphalangeal joint osteoarthrit ic changes are seen most prominent involving right third and fourth PIP joints with slight medial sub luxation. Bony erosive changes are noted scattered throughout carpal bones, bilateral first through t hird metacarpal heads, and throughout bilateral interphalangeal joints more prominent on the right si de. Soft tissues: No suspicious soft tissue calcifications. IMPRESSION: Osteoarthritic changes and erosive changes in bilateral hand and wrist joints as above worse on the r ight side and is concerning for changes related to inflammatory arthropathy. Reviewed by: Gab Mercedes MD on 10/22/2021 8:16 PM PST Approved by: Gab Mercedes MD on 10/22/2021 8:16 PM PST Station ID: [id number]
== END 2021-10-22 16:40 | disposition home or self-care (01) ==
LOC: DI.N 16:39
PROVIDERS: ATTEND Physician Assistant Medical
DX: M19.042 Primary osteoarthritis, left hand (principal); M19.041 Primary osteoarthritis, right hand; M19.032 Primary osteoarthritis, left wrist; M19.031 Primary osteoarthritis, right wrist; E03.9 Hypothyroidism, unspecified
CPT/HCPCS: 36415; 84443

== ENCOUNTER 2021-10-28 14:13 | Outpatient (CLI) | payer OTHER ==
[2021-10-28 20:08] LABS: RHEUMATOID FACTOR NEGATIVE (Negative)
== END 2021-10-28 14:14 | disposition home or self-care (01) ==
LOC: LAB.N 14:13
PROVIDERS: ATTEND Physician Assistant Medical
DX: M19.049 Primary osteoarthritis, unspecified hand (principal)
CPT/HCPCS: 36415; 85651; 86140; 86430

== ENCOUNTER 2021-11-23 08:00 | Outpatient (CLI) | payer OTHER | END 2021-11-23 23:59 | LOC: LAB 08:00 | PROVIDERS: ATTEND Physician Assistant | DX: R10.9 Unspecified abdominal pain (principal) | CPT/HCPCS: 87077; 87086; 87181 ==

== ENCOUNTER 2021-12-06 14:13 | Outpatient (CLI) | payer OTHER ==
[2021-12-06 19:01] LABS: BILIRUBIN,URINE NEGATIVE (NEGATIVE); GLUCOSE, URINE (UA) NEGATIVE (NEGATIVE); KETONES,URINE (UA) NEGATIVE (NEGATIVE); LEUKOCYTE ESTERASE, URINE NEGATIVE (NEGATIVE); NITRITE,URINE NEGATIVE (NEGATIVE); OCCULT BLOOD,URINE NEGATIVE (NEGATIVE); PROTEIN,URINE NEGATIVE (NEGATIVE); UROBILINOGEN,URINE 0.2 (NORMAL) E.U./dL (NORMAL)
[2021-12-06 19:11] LABS: CLARITY,URINE HAZY (CLEAR)
[2021-12-06 19:29] LABS: BACTERIA,URINE Rare /HPF (None Seen); CRYSTALS,URINE >50 Uric Acid /LPF; RBC,URINE None Seen /HPF (0-5); SQUAMOUS EPITHELIAL CELL,UR RARE Squamous (<= Few); WBC,URINE 0-3 /HPF (0-5)
== END 2021-12-06 14:14 | disposition home or self-care (01) ==
LOC: LAB.N 14:13
PROVIDERS: ATTEND Physician Assistant Medical
DX: N30.00 Acute cystitis without hematuria (principal)
CPT/HCPCS: 81001; 87086

== ENCOUNTER 2022-09-06 13:16 | Outpatient (CLI) | payer OTHER ==
--- NOTE | 2022-09-06 20:33 | XRAY Report ---
PROCEDURE: Cervical Spine 2 View INDICATIONS: PARESTHESIA TECHNIQUE: 3 view(s) of the cervical spine were acquired. COMPARISON: None. FINDINGS: Bones: No fractures or dislocations to the T1 level. There is straightening of normal cervical lordo sis. Loss of disc height, degenerative endplate changes and bilateral facet hypertrophic changes are noted throughout cervical spine most notably at C5-6 and C6-7 levels. The lateral masses of C1 appear intact on the odontoid view. No suspicious bony lesions. Soft tissues: No prevertebral soft tissue swelling. IMPRESSION: Degenerative disc disease throughout cervical spine. No acute fracture or dislocation. Reviewed by: Gab Grissom MD on 09/06/2022 8:32 PM PST Approved by: Gab Grissom MD on 09/06/2022 8:32 PM [facility] Station ID: [id number]
== END 2022-09-06 13:17 | disposition home or self-care (01) ==
LOC: LAB.N 13:16 → DI.N 13:17
PROVIDERS: ATTEND Physician Assistant Medical
DX: R20.9 Unspecified disturbances of skin sensation (principal); M47.812 Spondylosis without myelopathy or radiculopathy, cervical region; M50.322 Other cervical disc degeneration at C5-C6 level

== ENCOUNTER 2022-11-16 15:13 | Outpatient (CLI) | payer OTHER ==
--- NOTE | 2022-11-17 10:59 | Mammography Report ---
BILATERAL DIGITAL SCREENING MAMMOGRAM 3D/2D: 11/16/2022 CLINICAL: Routine screening. Comparison is made to exams dated: 03/24/2021 ultrasound, 03/24/2021 mammogram, 07/27/2016 mammogram - [facility], 07/31/2013 mammogram, and 06/02/2011 mammogram - [facility]. There are scattered areas of fibroglandular density in both breasts (category b / 25%-50% glandular t issue). No significant masses, calcifications, or other findings are seen in either breast. There has been no significant interval change. IMPRESSION: NEGATIVE There is no mammographic evidence of malignancy. A 1 year screening mammogram is recommended. Based on the Tyrer Cuzick model (a risk assessment model) the patients lifetime risk is 6.5% and her 10 year risk is 3.0%. According to the ACR, ACS, and NCCN guidelines, an annual breast MRI exam angelica g with mammogram is recommended if the patients lifetime risk is 20% or greater. This exam was interpreted at Station ID: [id number]. NOTE: For mammograms, a report in lay terms will be sent to the patient. Approximately 15% of breast malignancies will not be visualized mammographically. In the management of a palpable breast mass, a negative mammogram must not discourage biopsy of a clinically suspicious lesion. Electronically Signed By: New Roe M.D., jr/jules:11/17/2022 09:14:31 ACR BI-RADS Category 1: Negative 3341F PARENCHYMAL PATTERN: (A) - The breast(s) demonstrate(s) scattered fibroglandular densities. BI-RADS CATEGORY: (1) - 1 RECOMMENDATION: (ANNUAL) - Recommend routine annual screening mammography. [id number] 1 year screening LATERALITY: (B)
== END 2022-11-16 15:14 | disposition home or self-care (01) ==
LOC: DI.N 15:13
DX: Z12.31 Encounter for screening mammogram for malignant neoplasm of breast (principal)

== ENCOUNTER 2023-03-20 11:10 | Outpatient (CLI) | payer MEDICARE, OTHER ==
[2023-03-20 17:35] LABS: BASOPHILS # (AUTO) 0.1 10^3/uL (0.0-0.1); BASOPHILS % (AUTO) 0.5 %; EOSINOPHILS # (AUTO) 0.3 10^3/uL (0.0-0.7); EOSINOPHILS % (AUTO) 2.4 %; HCT - HEMATOCRIT 39.3 % (37.0-47.0); HGB - HEMOGLOBIN 12.5 g/dL (12.0-16.0); LYMPHOCYTES # (AUTO) 3.2 10^3/uL (1.5-3.5); LYMPHOCYTES % (AUTO) 24.1 %; MEAN CORPUSCULAR HEMOGLOBIN 28.4 pg (27.0-31.0); MEAN CORPUSCULAR HGB CONC 31.8 g/dL (32.0-36.0); MEAN CORPUSCULAR VOLUME 89.3 fL (81.0-99.0); MEAN PLATELET VOLUME 11.2 fL (7.9-10.8); MONOCYTES # (AUTO) 0.9 10^3/uL (0.0-1.0); MONOCYTES % (AUTO) 6.9 %; NEUTROPHILS # (AUTO) 8.7 10^3/uL (1.5-6.6); NEUTROPHILS % (AUTO) 64.8 %; PLT - PLATELET COUNT 398 10^3/uL (130-450); RED CELL DISTRIBUTION WIDTH 13.3 % (12.0-15.0); WHITE BLOOD COUNT 13.4 x10^3/uL (4.8-10.8)
[2023-03-20 18:11] LABS: ALBUMIN 3.3 g/dL (3.2-5.5); ALBUMIN/GLOBULIN RATIO 0.8 (1.0-2.2); BILIRUBIN,TOTAL 0.2 mg/dL (0.2-1.0); CALCIUM 8.8 mg/dL (8.5-10.3); CREATININE 0.8 mg/dL (0.4-1.0); POTASSIUM 3.3 mmol/L (3.5-5.0); TOTAL PROTEIN 7.5 g/dL (6.7-8.2)
== END 2023-03-20 11:11 | disposition home or self-care (01) ==
LOC: LAB.N 11:10
PROVIDERS: ATTEND Physician Assistant Medical
DX: N12 Tubulo-interstitial nephritis, not specified as acute or chronic (principal)
CPT/HCPCS: 36415; 80053; 85025

== ENCOUNTER 2023-04-27 14:50 | Outpatient (CLI) | payer MEDICARE, OTHER ==
[2023-04-27 18:04] LABS: BASOPHILS # (AUTO) 0.1 10^3/uL (0.0-0.1); BASOPHILS % (AUTO) 0.5 %; EOSINOPHILS # (AUTO) 0.3 10^3/uL (0.0-0.7); EOSINOPHILS % (AUTO) 3.2 %; HCT - HEMATOCRIT 42.2 % (37.0-47.0); HGB - HEMOGLOBIN 13.4 g/dL (12.0-16.0); LYMPHOCYTES # (AUTO) 2.6 10^3/uL (1.5-3.5); LYMPHOCYTES % (AUTO) 24.2 %; MEAN CORPUSCULAR HEMOGLOBIN 27.9 pg (27.0-31.0); MEAN CORPUSCULAR HGB CONC 31.8 g/dL (32.0-36.0); MEAN CORPUSCULAR VOLUME 87.9 fL (81.0-99.0); MEAN PLATELET VOLUME 11.2 fL (7.9-10.8); MONOCYTES # (AUTO) 0.8 10^3/uL (0.0-1.0); MONOCYTES % (AUTO) 7.6 %; NEUTROPHILS # (AUTO) 6.8 10^3/uL (1.5-6.6); NEUTROPHILS % (AUTO) 64.3 %; PLT - PLATELET COUNT 283 10^3/uL (130-450); RED CELL DISTRIBUTION WIDTH 14.1 % (12.0-15.0); WHITE BLOOD COUNT 10.5 x10^3/uL (4.8-10.8)
[2023-04-27 18:25] LABS: CALCIUM 9.5 mg/dL (8.5-10.3); POTASSIUM 3.7 mmol/L (3.5-4.5)
== END 2023-04-27 14:51 | disposition home or self-care (01) ==
LOC: LAB.N 14:50
PROVIDERS: ATTEND Physician Assistant Medical
DX: N17.9 Acute kidney failure, unspecified (principal)
CPT/HCPCS: 36415; 80048; 85025

== ENCOUNTER 2024-01-05 08:35 | Outpatient (CLI) | payer MEDICARE, OTHER ==
[2024-01-05 12:13] LABS: ALBUMIN 3.7 g/dL (3.2-5.5); ALBUMIN/GLOBULIN RATIO 1.2 (1.0-2.2); ALKALINE PHOSPHATASE 143 IU/L (42-121); ALT ALANINE AMINOTRANSFERASE 47 IU/L (10-60); AST ASPARTATE AMINOTRANSFERASE 33 IU/L (10-42); BILIRUBIN,TOTAL 0.5 mg/dL (0.2-1.0); BUN - BLOOD UREA NITROGEN 21 mg/dL (6-20); CALCIUM 9.5 mg/dL (8.5-10.3); CARBON DIOXIDE - CO2 33 mmol/L (21-32); CHLORIDE 100 mmol/L (101-111); CHOL/HDL RATIO 4.8 (<4.4); CHOLESTEROL 230 mg/dL; CREATININE 0.9 mg/dL (0.6-1.3); GFR - MDRD 63 (>89); GLUCOSE 97 mg/dL (74-104); HDL CHOLESTEROL 48 mg/dL; LDL CHOLESTEROL,CALCULATED 147 mg/dL; LDL/HDL RATIO 3.1 (<4.4); POTASSIUM 4.2 mmol/L (3.5-4.5); SODIUM 136 mmol/L (135-145); TOTAL PROTEIN 6.9 g/dL (6.4-8.9); TRIGLYCERIDES 175 mg/dL (48-352); VLDL CHOLESTEROL 35 mg/dL
== END 2024-01-05 08:36 | disposition home or self-care (01) ==
LOC: LAB.N 08:35
PROVIDERS: ATTEND Physician Assistant Medical
DX: E78.5 Hyperlipidemia, unspecified (principal)
CPT/HCPCS: 36415; 80053; 80061; 83721

== ENCOUNTER 2024-01-23 14:44 | Outpatient (CLI) | payer MEDICARE, OTHER ==
--- NOTE | 2024-01-25 09:33 | Mammography Report ---
BILATERAL DIGITAL SCREENING MAMMOGRAM 3D/2D: 01/23/2024 CLINICAL: Routine screening. Comparison is made to exams dated: 11/16/2022 mammogram, 03/24/2021 ultrasound, 03/24/2021 mammogram, 1 mammogram - [facility], 07/31/2013 mammogram, and 06/02/2011 mammogram - [facility]. There are scattered areas of fibroglandular density in both breasts (category b / 25%-50% glandular t issue). There is a focal asymmetry in the left breast at 12 o'clock anterior depth. No other significant masses, calcifications, or other findings are seen in either breast. IMPRESSION: INCOMPLETE: NEEDS ADDITIONAL IMAGING EVALUATION The focal asymmetry in the left breast is indeterminate. Additional views with possible ultrasound a re recommended. Based on the Tyrer Cuzick model (a risk assessment model) the patient's lifetime risk is 6.2% and her 10 year risk is 3.0%. According to the ACR, ACS, and NCCN guidelines, an annual breast MRI exam angelica g with mammogram is recommended if the patient's lifetime risk is 20% or greater. This exam was interpreted at Station ID: [id number]. NOTE: For mammograms, a report in lay terms will be sent to the patient. Approximately 15% of breast malignancies will not be visualized mammographically. In the management of a palpable breast mass, a negative mammogram must not discourage biopsy of a clinically suspicious lesion. Electronically Signed By: Olivia rich/jules:01/24/2024 12:49:24 ACR BI-RADS Category 0: Incomplete 3340F PARENCHYMAL PATTERN: (A) - The breast(s) demonstrate(s) scattered fibroglandular densities. BI-RADS CATEGORY: (0) - 0 Mammo and [place] [id number] Immediate follow-up LATERALITY: (B)
== END 2024-01-23 14:45 | disposition home or self-care (01) ==
LOC: DI.N 14:44
DX: Z12.31 Encounter for screening mammogram for malignant neoplasm of breast (principal); R92.323 Mammographic fibroglandular density, bilateral breasts; R92.8 Other abnormal and inconclusive findings on diagnostic imaging of breast

== ENCOUNTER 2024-02-19 14:18 | Outpatient (CLI) | payer MEDICARE, OTHER ==
--- NOTE | 2024-02-23 12:30 | SLEEP CARE CONSULTATION ---
Information from patient questionnaire entered by Petra Valverde. I have reviewed and concur with the information entered by Petra Valverde. This document represents the service I personally performed and the decisions made by me, Leticia Rosado MD, [facility]. History of Present Illness Service Date and Time: 02/19/2024 1418 Reason for Visit: New patient Chief Complaint: reports: Frequent awakenings at night Date of Onset: YRS Usual bedtime: [id number] Snores at night: Yes Observed to quit breathing while asleep: Yes Sleeps alone due to snoring: No Number of times waking at night: 3-4 Reasons for waking at night: reports: Bathroom, Other ([place]) Toss, Turn, or Twitch while sleeping: Yes Recalls having dreams: No Usually gets out of bed at: 0145 Feels refreshed in the morning: Yes Morning headache: No Sleepy or fatigued during the day: Yes Ever fallen asleep while driving: Yes Takes day naps: Yes Dreams during day naps: No Prior sleep studies: Yes Additional HPI information: I had the pleasure of seeing today regarding obstructive sleep apnea- hypopnea. As you know, she is a 58 year old lady who was diagnosed with the sleep disordered breathing about 15 years ago in [place]. She was prescribed a CPAP and used it regularly for about 4 years but when water got into the mask. She had another sleep study here in 2019 showing mild obstructive sleep apnea- hypopnea. The AHI was 13.3. She was restarted on a new CPAP. She used it for a few years. She quit again when her throat became very dry. She did not know that she could change the humidity setting. Recently, she wanted to restart but her durable medical supplier [facility] said her prescription for supplies ran out long time ago. 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 Patient is and lives in [place]. Have you smoked in the past 12 months: No Alcohol use: No Caffeine use: Yes Caffeine amount and frequency: 2 CUPS COFFEE IN THE MORNING Family History Family history of sleep disordered breathing: Yes Family Hx Sleep Apnea: Sibling: Sleep apnea - Treated Allergies and Home Medications Drug allergies reviewed: Yes Home medication list reviewed: Yes Allergy and home medication list: Allergies erythromycin base Allergy (Verified 02/15/24 10:17) Roxie Review of Systems Cardiovascular: reports: leg or foot swelling Respiratory: reports: shortness of breath, wheeze Gastrointestinal: reports: heartburn, difficulty swallowing, nausea Urinary: reports: frequency, urgency Neurological: denies: headaches, seizure, head trauma, disorientation, speech dysfunction, gait or balance problems, fainting or unconsciousness, other Psychiatric: reports: anxiety, depression, mood disorder, claustrophobia Ear/Nose/Throat: reports: nasal congestion, dry mouth/throat, hoarseness, tonsillectomy Endocrine: reports: thyroid disease, sluggishness, too hot or cold, increased appetite, increased urination Musculoskeletal: reports: neck pain, back pain, muscle pain or cramping, mobility problems Immunologic: reports: sneezing Physical Exam Vital signs obtained and entered by: PETRA Armijo MA Blood Pressure: 153/79 (LEFT) Cuff size: wrist Heart Rate: 87 O2 Saturation: 96 Height: 5 ft 1 in Weight: 268 lb 12.8 oz Body Mass Index: 50.8 BMI Classification: Morbidly Obese Neck circumference: 16.75 Mood/affect: Normal HEENT: No craniofacial malformation Nostrils: patent to airflow Turbinates: normal Septum: midline Mouth and throat: narrow oropharynx Soft palate: long Hard palate: normal Uvula: normal Uvula visualization: 50% Mallampati Class II Tongue: normal in size Tonsils: absent bilaterally Chin and jaw: normal size and position Neck: normal w/o lymphadenopathy or thyromegaly Heart: regular rate and rhythm Lungs: clear bilaterally Extremities: no edema or clubbing Neurologic: intact Impression and Plan IMPRESSION: 1. Obstructive Sleep Apnea-Hypopnea Syndrome, mild, as previously diagnosed but presently untreated. The patient would like to restart the positive airway pressure therapy. I will order her new supplies through [facility]. Plan: 1. Prescription made for CPAP supplies. 2. Try to lose weight. 3. Return for follow up after a month of using her CPAP. If she demonstrates good compliance, I will order her a new machine. Prescriptions: Device supplies Follow up with Sleep Care in: 1-2 months Follow up recommended for: Weight management Visit Type: In Office Time Spent with Patient (minutes): 15 Provider Statement: I spent 100% of the Face to Face Visit with the patient with greater than 50% spent counseling the patient and coordination of care.
[2024-02-23 12:38] VITALS: BP 153/79; O2SAT 96
== END 2024-02-19 14:19 | disposition home or self-care (01) ==
LOC: SC 14:18
PROVIDERS: ATTEND Internal Medicine Pulmonary Disease
DX: G47.33 Obstructive sleep apnea (adult) (pediatric) (principal); E66.01 Morbid (severe) obesity due to excess calories; Z68.43 Body mass index [BMI] 50.0-59.9, adult
CPT/HCPCS: 99202; G0463; 99212

== ENCOUNTER 2024-03-01 10:56 | Outpatient (CLI) | payer MEDICARE, OTHER ==
--- NOTE | 2024-03-04 09:33 | Ultrasound Report ---
LIMITED ULTRASOUND OF LEFT BREAST: 03/01/2024 CLINICAL: Patient returns today to evaluate a focal asymmetry in the left breast. Comparison is made to exams dated: 01/23/2024 mammogram, 11/16/2022 mammogram, and 03/24/2021 [facility]. Color flow and real-time ultrasound of the left breast 12 o'clock region were performed. Parsons scale images of the real-time examination were reviewed. There is a benign 0.6 cm x 0.5 cm x 0.4 cm oval simple cyst in the left breast at 12 o'clock anterior depth 5 cm from the nipple. This correlates with mammography findings. Color flow imaging demonstr ates that there is no vascularity present. IMPRESSION: BENIGN There is no sonographic evidence of malignancy. The 0.6 cm simple cyst in the left breast is benign. A 1 year screening mammogram is recommended. Exam findings were conveyed to the patient. This exam was interpreted at Station ID: [id number]. Electronically Signed By: Everardo De Leon M.D. slc/:03/01/2024 11:40:11 Ultrasound BI-RADS: 2 Benign BI-RADS CATEGORY: (2) - 2 RECOMMENDATION: (ANNUAL) - Recommend routine annual screening mammography. [id number] 1 year screening LATERALITY: (B)
--- NOTE | 2024-03-04 09:33 | Mammography Report ---
UNILATERAL LEFT DIGITAL DIAGNOSTIC MAMMOGRAM 3D/2D: 03/01/2024 CLINICAL: Patient returns today to evaluate a focal asymmetry in the left breast. Comparison is made to exams dated: 01/23/2024 mammogram, 11/16/2022 mammogram, 03/24/2021 mammogram, an d 07/27/2016 mammogram - [facility]. There are scattered areas of fibroglandular density in the left breast (category b / 25%-50% glandula r tissue). There is a focal asymmetry in the left breast at 12 o'clock anterior depth. No other significant masses or calcifications are seen in the breast. IMPRESSION: INCOMPLETE: NEEDS ADDITIONAL IMAGING EVALUATION The focal asymmetry in the left breast resembles a cyst and is indeterminate. A targeted ultrasound is recommended and will immediately follow. Based on the Tyrer Cuzick model (a risk assessment model) the patient's lifetime risk is 5.9% and her 10 year risk is 3.0%. According to the ACR, ACS, and NCCN guidelines, an annual breast MRI exam angelica g with mammogram is recommended if the patient's lifetime risk is 20% or greater. This exam was interpreted at Station ID: [id number]. NOTE: For mammograms, a report in lay terms will be sent to the patient. Approximately 15% of breast malignancies will not be visualized mammographically. In the management of a palpable breast mass, a negative mammogram must not discourage biopsy of a clinically suspicious lesion. Electronically Signed By: Everardo De Leon M.D. slc/:03/01/2024 11:25:01 ACR BI-RADS Category 0: Incomplete 3340F PARENCHYMAL PATTERN: (A) - The breast(s) demonstrate(s) scattered fibroglandular densities. BI-RADS CATEGORY: (0) - 0 Ultrasound [id number] Immediate follow-up LATERALITY: (B)
== END 2024-03-01 10:57 | disposition home or self-care (01) ==
LOC: DI 10:56
PROVIDERS: ATTEND Physician Assistant Medical
DX: N60.02 Solitary cyst of left breast (principal)

== ENCOUNTER 2024-03-22 14:44 | Outpatient (CLI) | payer MEDICARE, OTHER ==
[2024-03-22 18:17] LABS: CALCIUM 9.8 mg/dL (8.5-10.3)
[2024-03-22 18:56] LABS: THYROID STIMULATING HORMONE 3.13 uIU/mL (0.34-5.60)
[2024-03-22 21:11] LABS: ESTIMATED AVERAGE GLUCOSE 120 mg/dL (70-100); HEMOGLOBIN A1c% 5.8 % (4.27-6.07)
== END 2024-03-22 14:45 | disposition home or self-care (01) ==
LOC: LAB.N 14:44
PROVIDERS: ATTEND Physician Assistant Medical
DX: N17.9 Acute kidney failure, unspecified (principal); E03.9 Hypothyroidism, unspecified; R73.9 Hyperglycemia, unspecified
CPT/HCPCS: 36415; 80048; 83036; 84443

== ENCOUNTER 2024-04-08 14:46 | Outpatient (CLI) | payer MEDICARE, OTHER ==
--- NOTE | 2024-04-08 15:13 | SLEEP CARE CONSULTATION ---
Information from patient questionnaire entered by Simi Valverde. I have reviewed and concur with the information entered by Simi Valverde. This document represents the service I personally performed and the decisions made by me, Leticia Rosado MD, [facility]. History of Present Illness Service Date and Time: 04/08/2024 1446 Reason for follow up: other (2 MONTH F/U) Equipment type: CPAP (MACHINE) HPI additional information: I had the pleasure of seeing today regarding obstructive sleep apnea- hypopnea. As you know, she is a 58 year old lady who was diagnosed with the sleep disordered breathing about 15 years ago in [place]. She was prescribed a CPAP and used it regularly for about 4 years but quit when water got into the mask. She had another sleep study here in 2019 showing mild obstructive sleep apnea-hypopnea. The AHI was 13.3. She was restarted on a new CPAP. She used it for a few years. She quit again when her throat became very dry. She did not know that she could change the humidity setting. Recently, she wanted to restart but her durable medical supplier [facility] said her prescription for supplies ran out long time ago. On her last visit, I ordered her new CPAP supplies. However, [facility] would not give her new supplies. They said she did not use her CPAP for too many years and will need to have a new sleep study to confirm the diagnosis. Subjective Current [place] Sleepiness Scale score: 16 (04/08/24) Allergies and Home Medications Drug allergies reviewed: Yes Home medication list reviewed: Yes Allergy and home medication list: Allergies erythromycin base Allergy (Verified 04/02/24 08:19) Hives Review of Systems Review of systems same as previous: Yes (NO CHANGE) Physical Exam Vital signs obtained and entered by: SIMI Armijo MA Blood Pressure: 149/87 (LEFT ARM) Cuff size: regular Heart Rate: 92 O2 Saturation: 95 Height: 5 ft 1 in Weight: 268 lb 12.8 oz Body Mass Index: 50.8 BMI Classification: Morbidly Obese Impression and Plan IMPRESSION: 1. Obstructive Sleep Apnea-Hypopnea Syndrome, mild, as previously diagnosed but presently untreated. The patient could restart the treatment be cause her durable medical supplier would not give her new supplies due to the long period of non-compliance. She now needs to have a new sleep study. Plan: 1. Schedule an in-laboratory polysomnography. 2. Try to lose weight. 3. Return for follow up after the sleep study. Counseling Topics: Weight control Follow up with Sleep Care in: 1-2 months Visit Type: In Office Other Participants: Spouse/Significant Other Time Spent with Patient (minutes): 15 Provider Statement: I spent 100% of the Face to Face Visit with the patient with greater than 50% spent counseling the patient and coordination of care.
[2024-04-08 15:19] VITALS: BP 149/87; O2SAT 95
== END 2024-04-08 14:47 | disposition home or self-care (01) ==
LOC: SC 14:46
PROVIDERS: ATTEND Internal Medicine Pulmonary Disease
DX: G47.33 Obstructive sleep apnea (adult) (pediatric) (principal)
CPT/HCPCS: 99212; G0463

== ENCOUNTER 2024-04-27 20:44 | Outpatient (CLI) | payer MEDICARE, OTHER | END 2024-04-27 20:45 | disposition home or self-care (01) | LOC: SC 20:44 | PROVIDERS: ATTEND Internal Medicine Pulmonary Disease | DX: G47.33 Obstructive sleep apnea (adult) (pediatric) (principal) | CPT/HCPCS: 95810 ==

== ENCOUNTER 2024-05-06 15:00 | Outpatient (CLI) | payer MEDICARE, OTHER ==
--- NOTE | 2024-05-06 18:48 | CT Report ---
PROCEDURE: Abdomen/Pelvis WO INDICATIONS: HIST OF VENTRAL HERNIA TECHNIQUE: A CT scan of the abdomen and pelvis was performed without the use of intravenous contrast. Images we re recorded and evaluated at appropriate window settings. Reformats: coronal and sagittal. For radiat ion dose reduction, the following was used: automated exposure control, adjustment of mA and/or kV ac cording to patient size. COMPARISON: 04/27/2020 FINDINGS: Image quality: Diagnostic. Lower chest: Mild bibasilar peripheral reticulation. No pericardial or pleural effusion. Liver: Moderate hepatomegaly with particular left lobe hypertrophy and mild diffuse hepatic hypodensi ty. No visible mass. Gallbladder: Surgically absent Biliary tree: No intrahepatic or extrahepatic dilation, accounting for a post-cholecystectomy state. Spleen: No splenomegaly. Pancreas: No pancreatic ductal dilation. Adrenals: No adrenal nodule. Kidneys and ureters: No hydronephrosis or nephrolithiasis. No hydroureter or ureteral calcification. Stomach, bowel and peritoneum: The stomach is decompressed. Small bowel loops are normal caliber. The re is a surgical small bowel anastomosis in the mid abdomen which appears widely patent. Moderate sig moid diverticulosis. Normal appendix. No pathologic free fluid. Lymph nodes: No central or retroperitoneal adenopathy. Vessels: Normal caliber abdominal aorta, IVC, and portal vein. Reproductive organs: Surgically absent. No suspicious adnexal mass. Bladder: Bladder wall thickness is normal, accounting for underdistention. No calcified bladder stone s. Pelvic lymph nodes: No adenopathy by size criteria. Bones: Degenerative bridging syndesmophytes in the lower thoracic spine and posterior vertebral body fusion in the lumbosacral spine. Mild bilateral SI joint degeneration. No suspicious bone lesions. Other: There are numerous surgical tacks along the anterior abdominal wall of prior mesh hernia repai r. The mesh appears intact. No associated fluid collection. There is moderate atrophy of bilateral rectus muscles, right more so than left. There are several fas cial defects in the anterior abdominal wall in the supraumbilical region. Underlying mesh appears int act and there is no evidence of omental or bowel loop herniation. There is no inflammation or fluid c ollection in the subcutaneous anterior abdominal wall. IMPRESSION: Intact mesh hernia repair of several small fascial defect. No new hernia or evidence of mesh related complication. Chronic, moderate hepatomegaly and mild steatosis. Correlate with LFTs. Reviewed by: Radha Rubin MD on 05/06/2024 6:46 PM PDT Approved by: Radha Rubin MD on 05/06/2024 6:46 PM PDT Station ID: [id number]
== END 2024-05-06 15:01 | disposition home or self-care (01) ==
LOC: DI 15:00
PROVIDERS: ATTEND Surgery
DX: K76.0 Fatty (change of) liver, not elsewhere classified (principal); R16.0 Hepatomegaly, not elsewhere classified; R10.13 Epigastric pain

== ENCOUNTER 2024-05-22 14:55 | Outpatient (CLI) | payer MEDICARE, OTHER ==
--- NOTE | 2024-05-22 15:52 | Sleep Patient Instructions ---
Sleep Center Visit Summary - Patient Visit Information Reason for Visit: Sleep study follow-up - Patient Instructions Additional Instructions: You are being started on CPAP therapy. You will be completing a titration sleep study in our sleep lab where you will be sleeping with the CPAP machine on and we will be adjusting your pressures to find your optimal pressure settings. Once we have your results back, we will call you and schedule a follow up to go over the results, you may contact us with any questions or issues as needed. - Clinic Information Contact: [facility] [address] [place] [id number] [email or web address] T: [phone]
--- NOTE | 2024-05-22 15:56 | SLEEP CARE CONSULTATION ---
Information from patient questionnaire entered by Petra Valverde. I have reviewed and concur with the information entered by Petra Valverde. This document represents the service I personally performed and the decisions made by , Danni Albright ARNP. History of Present Illness Service Date and Time: 05/22/2024 1455 Initial [place] Sleepiness Scale score: 19 (01/2024) Current [place] Sleepiness Scale score: 18 (05/22/24) Additional HPI information: RAY CHACON returns for follow up and results of the recently performed polysomnography. The sleep study done on 04/27/24 showed mild obstructive sleep apnea with an average AHI of 8.7 and bailey oxygen saturation of 71%. I explained the pathophysiology behind obstructive sleep apnea. We then spent quite a bit of time discussing different treatment options. For mild obstructive sleep apnea, surgery and oral appliance are alternatives to nasal CPAP therapy but in moderate or severe cases, nasal CPAP is the most effective and reliable treatment. Because apnea is primarily in supine position, then positional management therapy could be effective. Methods discussed such as positioning with pillows, using a T-shirt with tennis balls in the back or commercial products that have a pillow format on back to prevent supine sleep. I reviewed the impact of weight changes on sleep apnea and strongly recommended losing weight. After some discussion, the patient opted to go with the nasal CPAP therapy. A manual titration study will be ordered to find optimal pressure. Patient counseled not drink alcohol less than 4 hours before bedtime as it can increase snoring and apnea. Patient was cautioned about risks of drowsy driving until sleepiness symptoms resolve. Patient denies drowsy driving. Sleep Study - Results Type of Sleep Study: Polysomnography (COMPLETED 04/27/24) Polysomnography/Home Sleep Study results: IMPRESSION: The quality of the study is good. The patient had normal sleep efficiency. The sleep architecture was abnormal for sleep fragmentation and reduced amount of time spent in REM and slow wave sleep (N3). Respiratory monitoring showed mild obstructive sleep apnea-hypopnea (AHI = 8.7) associated with frequent arousals, oxyhemoglobin desaturation and moderate hypoxia (bailey oxygen saturation of 71%). Baseline oxygen saturation was normal. The respiratory events occurred predominantly during supine REM sleep (supine AHI = 13.6; non-supine = 3.06). Snore was light to loud in intensity. There was no significant periodic leg movement of sleep. Cardiac rhythm was normal sinus rhythm without significant arrhythmia. No abnormal behavior (parasomnia) observed during the night. Allergies and Home Medications Known drug allergies: Yes (as listed) Drug allergies reviewed: Yes Home medication list reviewed: Yes (no changes) Allergy and home medication list: Allergies erythromycin base Allergy (Verified 05/22/24 15:06) Hives Review of Systems Review of systems same as previous: Yes (NO CHANGE) Physical Exam Vital signs obtained and entered by: PETRA Armijo MA Blood Pressure: 172/93 (RIGHT ARM) Cuff size: wrist Heart Rate: 82 O2 Saturation: 94 Height: 5 ft 1 in Weight: 267 lb 6.4 oz Body Mass Index: 50.5 BMI Classification: Morbidly Obese Impression and Plan 1. Obstructive Sleep Apnea-Hypopnea Syndrome, mild, with lowest oxygen saturation of 71%. Obviously this is the cause of the patients symptoms of unrefreshed sleep, and excessive daytime sleepiness. Positive pressure therapy could benefit fibromyalgia, anxiety, depression and mood disorder. As mentioned above, the patient will be started on nasal autoCPAP therapy. A manual titration study will be completed to find optimal treatment pressure. Compliance guidelines also reviewed. Because the apnea is more severe supine, I instructed to avoid sleeping supine using pillow positioning until able to start CPAP use. 2. Hypoxemia, moderate, with a bailey oxygen saturation of 71% and 10.4 minutes spent under 90%. The baseline oxygen saturation was normal with an average oxygen saturation of 93%. 3. Obesity, unspecified. Currently patients BMI is 50.5. Obesity increases the risk of apnea, CPAP pressure requirements and overall health risks especially cardiovascular and diabetes. Thus patient is advised to lose weight. * Titration study * Attempt to lose weight. * Avoid alcohol consumption near bedtime. * Avoid supine sleep until using CPAP. * The patient is again cautioned about driving until sleepiness completely resolves. * Return after titration study to review results and initiate therapy. Counseling Topics: Weight loss health impact Follow up with Sleep Care in: other Plan: Titration study and followup Visit Type: In Office Time Spent with Patient (minutes): 21 Provider Statement: I spent 100% of the Face to Face Visit with the patient with greater than 50% spent counseling the patient and coordination of care.
[2024-05-22 16:05] VITALS: BP 172/93; O2SAT 94
== END 2024-05-22 14:56 | disposition home or self-care (01) ==
LOC: SC 14:55
PROVIDERS: ATTEND Nurse Practitioner Family
DX: G47.33 Obstructive sleep apnea (adult) (pediatric) (principal); R09.02 Hypoxemia; E66.01 Morbid (severe) obesity due to excess calories; Z68.43 Body mass index [BMI] 50.0-59.9, adult
CPT/HCPCS: 99213; G0463; 99212

== ENCOUNTER 2024-06-25 15:19 | Outpatient (CLI) | payer MEDICARE, OTHER ==
--- NOTE | 2024-06-25 19:05 | DEXA Report ---
PROCEDURE: Dexa Spine and/or Hip INDICATIONS: POST MENOPAUSAL TECHNIQUE: Dual energy x-ray absorptiometry (DXA) was performed on a drchrono System. Regions measur ed are the AP Spine, femoral neck, and if needed forearm. COMPARISON: DEXA 11/09/2020 FINDINGS: Lumbar Spine: Bone Mineral Density: 1.275 g/cm/cm,T score: 0.9. Left Femoral Neck: Bone Mineral Density: 0.834 g/cm/cm, T score: -1.5. Left Hip: Bone Mineral Density: 0.811 g/cm/cm,T score: 1.6. Since the most recent prior study, there has been a statistically significant decrease in bone mineral density by 5.1 percent. FRAX score not calculated. (T score greater or equal to -1.0: NORMAL) (T score from -1.1 to -2.4: OSTEOPENIA) (T score less than or equal to -2.5 to: OSTEOPOROSIS) Impression: By WHO criteria, this patient has low bone density (osteopenia). Interval statistical decrease in bone mineral density of the hip. Patients with diagnosis of osteoporosis or osteopenia should have regular bone mineral density assess ment. For those eligible for Medicare, routine testing is allowed once every 2 years. Testing frequ ency can be increased for patients who have rapidly progressing disease or for those who are receivin g medical therapy to restore bone mass. Reviewed by: Raul Zavala MD on 06/25/2024 7:04 PM PDT Approved by: Raul Zavala MD on 06/25/2024 7:04 PM PDT Station ID: [id number]
== END 2024-06-25 15:20 | disposition home or self-care (01) ==
LOC: DI 15:19
PROVIDERS: ATTEND Physician Assistant Medical
DX: M85.88 Other specified disorders of bone density and structure, other site (principal); Z78.0 Asymptomatic menopausal state